=== PATIENT | male | born 1975 | race American Indian/Alaskan Native ===

== ENCOUNTER → 2017-09-23 | Outpatient (CLI) | payer OTHER ==
--- NOTE | 2017-09-24 17:17 | RADIOLOGY IMAGING REPORT ---
FACILITY: [facility] - [place] PATIENT NAME: ENRIQUE WORKMAN : [id number] MR: [id number] V: [id number] EXAM DATE: ORDERING PHYSICIAN: ANH SYED TECHNOLOGIST: Damián Newell EXAMINATION:TWO-DIMENSIONAL ECHOCARDIOGRAPH REASON:PULMONARY HTN 2D Measurements (normal values in centimeters) LV endLV endRV endVent.LV PostAorticLeftPercent DiastolicSystolicDiastolicSeptumWallRootAtriumShortening (3.5-5.7)(0.9-2.6)(0.6-1.1)(0.6-1.1)(2.0-3.7)(1.9-4.0)(25-35%) [id number]% STROKE VOLUME: 86ml ESTIMATED EJECTION FRACTION:81% PARASTERNAL LONG AXIS: Overall left ventricular function & right ventricular function appear to be normal. The aortic valve & mitral valve both appear to open normally. Color examination reveals trace of mitral insufficiency. Right ventricle appears to contract normally. The TAPSE is measured at 2.8. PARASTERNAL SHORT AXIS: Overall left ventricular function again appears to be normal if not slightly hyperdynamic. Aortic valve is trileaflet in configuration & appears to open normally. Color examination of the pulmonic valve revealed a trace of pulmonic insufficiency. There is also a trace to mild amount of tricuspid insufficiency noted. APICAL FOUR AND TWO CHAMBER: Normal left ventricular ejection fraction. Normal chamber sizes. Aortic valve area & mitral valve area both measure within normal ranges at 2.3 & 2.4cm2 respectively. Left atrial & right atrial volumes are measured within normal ranges at 13 & 11ml/m2. The tricuspid regurgitation Vmax measured at 2.58m/sec with estimated right atrial pressure at 3mm Hg. SUBCOSTAL VIEW: No pericardial effusion was noted. No atrioseptal or ventriculoseptal defects were appreciated. Agitated saline bubble contrast study was done & no atrioseptal or ventriculoseptal defects were appreciated. Doppler examination of the mitral valve in diastole does reveal a normal pattern. There is no reversal with Valsalva. Medial & lateral E prime velocities were measured within normal ranges. IVC is normal in size. OVERALL IMPRESSION: 1. Normal left ventricular systolic & diastolic function. Patient has slightly hyperdynamic with the estimated ejection of 81%. 2. There are normal chamber sizes. 3. A trileaflet aortic valve with no abnormalities. 4. There is a trace of mitral insufficiency with no mitral stenosis. 5. There is a trace of pulmonic insufficiency. 6. A trace amount of tricuspid insufficiency with estimated right ventricular systolic pressures of 35mm Hg which does include an estimated right atrial pressure of 3mm Hg. 7. No atrioseptal or ventriculoseptal defects were noted & an agitated saline bubble contrast study was done. Dictated by: Juan Diego Coombs M.D. on 09/24/2017 at 9:01 Transcribed by: AUGUSTINE on 09/24/2017 at 11:17 Approved by: Juan Diego Coombs M.D. on 09/24/2017 at 17:15 [facility]
== END ==
LOC: US 12:52
PROVIDERS: ATTEND Internal Medicine
DX: I34.0 Nonrheumatic mitral (valve) insufficiency (principal); I07.1 Rheumatic tricuspid insufficiency; I37.1 Nonrheumatic pulmonary valve insufficiency
CPT/HCPCS: 93306